=== PATIENT | male | born 1980 | race Two or more races ===

== ENCOUNTER 2016-11-28 17:24 | Emergency (ER) | payer SELFPAY ==
[2016-11-28 18:11] LABS: BASO # 0.1 x10^3/uL (0.0-0.2); BASO % 1 % (0-3); EOS % 4 % (0-3); HEMATOCRIT 46.6 % (39.0-53.0); HEMOGLOBIN 16.2 g/dL (13.0-17.5); LYMPH # 2.5 x10^3/uL (1.0-4.8); LYMPH % 21 % (24-48); MEAN CORPUSCULAR HEMOGLOBIN 30 pg (25-35); MEAN CORPUSCULAR HGB CONC 35 g/dL (31-37); MEAN CORPUSCULAR VOLUME 86 fL (79-100); MONO % 7 % (0-9); NEUT % 67 % (31-73); PLATELET COUNT 274 x10^3/uL (140-400); RED CELL DISTRIBUTION WIDTH 13.6 % (11.5-14.5); WHITE BLOOD COUNT 12.1 x10^3/uL (4.0-11.0)
[2016-11-28 18:24] LABS: CALCIUM 9.8 mg/dL (8.5-10.1); CREATININE 1.1 mg/dL (0.7-1.3); GFR 75.7
[2016-11-28 18:29] LABS: ALBUMIN 4.4 g/dL (3.4-5.0); TOTAL BILIRUBIN 0.4 mg/dL (0.2-1.0); TOTAL PROTEIN 8.6 g/dL (6.4-8.2)
--- NOTE | 2016-11-28 18:29 | EKG ---
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
[2016-11-28] MEDS ORDERED: IV NORMAL SALINE 1000ML BAG 1,000 ML IV ONE ×2 (18:30→19:45)
[2016-11-28] MEDS ORDERED: KETOROLAC 15 MG/ML VIAL. IV ONE (18:30)
[2016-11-28] MEDS ORDERED: POTASSIUM CHLORIDE 20 MEQ TABLET.ER. PO ONE (19:15)
[2016-11-28 19:20] LABS: BILIRUBIN,URINE NEGATIVE (NEG); GLUCOSE,URINE NEGATIVE (NEG); NITRITE,URINE NEGATIVE (NEG); PH,URINE 7.5; PROTEIN,URINE NEGATIVE (NEG-TRACE); UROBILINOGEN,URINE 0.2 mg/dL (0.2 mg/dL)
[2016-11-28 19:30] LABS: BACTERIA,URINE 0 /HPF (0-FEW); RBC,URINE OCC /HPF (0-2); WBC,URINE 0 /HPF (0-4)
[2016-11-28 19:31] LABS: BARBITURATES NEG (NEG); BENZODIAZEPINES NEG (NEG); CANNABINOIDS NEG (NEG); COCAINE NEG (NEG); METHADONE NEG (NEG); OPIATES NEG (NEG); PHENCYCLIDINE NEG (NEG)
[2016-11-28 20:20] VITALS: BP 124/74
--- NOTE | 2016-11-28 20:34 | PHYS DOC ---
Past Medical History Past Medical History: Asthma Past Surgical History: No Surgical History Alcohol Use: Rarely Drug Use: None Adult General Chief Complaint Chief Complaint: RAPID HEART RATE HPI HPI Patient is a 35 year old gentleman who presents ER today secondary to a rapid heart rate with increased respiratory rate that started earlier today. Patient denies any fevers shakes chills nausea vomiting diarrhea. Patient has any chest pain or shortness of breath. Patient reports his symptoms started approximately noon time. Patient reports that he drank 2 large cups of coffee today at around 10:00 prior to the symptoms occurring. Patient reports his last by mouth intake today was around 11 AM. Patient reports he also drank a couple caffeinated sodas as well. Patient denies any history of hypertension diabetes long liver or kidney problems. Patient reports she does have a history of asthma. Patient denies any coronary disease. Patient denies any allergies. Patient does not smoke drink or do any drugs. Patient has no prior DVT or PE. Patient denies any family history of DVT or PE. Review of systems: Constitutional: Denies fever or chills Eyes: Denies change in visual acuity, redness, or eye pain HENT: Denies nasal congestion or sore throat All the other review systems are negative except as documented in the history of present illness portion. Physical exam: Constitutional: Well developed, well nourished, no acute distress, non-toxic appearance. HENT: Normocephalic, atraumatic, bilateral external ears normal, nose normal. Eyes:EOMI, conjunctiva normal, no discharge. Neck: Normal range of motion, no tenderness, supple, no stridor. Cardiovascular:Heart rate regular rhythm, Lungs & Thorax: Bilateral breath sounds clear to auscultation Abdomen: Bowel sounds normal, soft, no tenderness, no masses, no pulsatile masses. Skin: Warm, dry, no erythema, no rash. Back: No tenderness, no CVA tenderness. Extremities: No tenderness, no cyanosis, no clubbing, ROM intact, no edema. Neurologic: Alert and oriented X 3, normal motor function, normal sensory function, no focal deficits noted. Psychologic: Affect normal, judgement normal, mood normal. Patient's physical examination ER significant for a resting tachycardia. Patient 's heart rate between 105-110. Patient's ER workup is significant for normal labs. Patient had normal CBC, CMP , TSH, d-dimer, troponin, BNP. Patient received 2 L of normal saline and 1 mg of IV Ativan to reassess his heart rate. Patient's heart rate currently is running between 100 and 110.\ Assessment and plan Palpitations/tachycardia most likely secondary to increased use of caffeine. Patient's clinically hemodynamically stable and appears very comfortable. I discussed with the patient that he will need to follow-up with primary care physician for further evaluation of his tachycardia but until then I have recommended that he abstain from any caffeinated beverages to see if that might help since it his symptoms. Currently there is no signs or symptoms that'll be concerning for PE, DVT, MO, SVT. Patient is stable for discharged home. Current Medications Current Medications Current Medications Medications (Trade) Dose Ordered Sig/Monserrat Start Time Stop Time Status Last Admin Dose Admin Ketorolac Tromethamine (Toradol) 15 mg 1X ONCE 11/28/16 18:30 11/28/16 18:31 DC 11/28/16 18:27 15 MG Lorazepam (Ativan) 1 mg 1X ONCE 11/28/16 19:45 11/28/16 19:46 DC 11/28/16 19:37 1 MG Potassium Chloride (Klor-Con) 40 meq 1X ONCE 11/28/16 19:15 11/28/16 19:16 DC 11/28/16 19:09 40 MEQ Sodium Chloride 1,000 ml @ 1,000 mls/hr 1X ONCE 11/28/16 19:45 11/28/16 20:44 11/28/16 19:19 1,000 MLS/HR Allergies Allergies Allergies Coded Allergies Type Severity Reaction Last Updated Verified No Known Drug Allergies 11/28/16 No Current Patient Data Vital Signs Vital Signs Date Time Temp Pulse Resp B/P (MAP) Pulse Ox O2 Delivery O2 Flow Rate FiO2 11/28/16 19:50 104 15 122/76 (91) 98 Room Air 11/28/16 17:28 98.8 98.8 Lab Values Laboratory Tests Test 11/28/16 17:38 11/28/16 19:05 White Blood Count 12.1 x10^3/uL (4.0-11.0) H Red Blood Count 5.40 x10^6/uL (4.30-5.70) Hemoglobin 16.2 g/dL (13.0-17.5) Hematocrit 46.6 % (39.0-53.0) Mean Corpuscular Volume 86 fL (79-100) Mean Corpuscular Hemoglobin 30 pg (25-35) Mean Corpuscular Hemoglobin Concent 35 g/dL (31-37) Red Cell Distribution Width 13.6 % (11.5-14.5) Platelet Count 274 x10^3/uL (140-400) Neutrophils (%) (Auto) 67 % (31-73) Lymphocytes (%) (Auto) 21 % (24-48) L Monocytes (%) (Auto) 7 % (0-9) Eosinophils (%) (Auto) 4 % (0-3) H Basophils (%) (Auto) 1 % (0-3) Neutrophils # (Auto) 8.1 x10^3uL (1.8-7.7) H Lymphocytes # (Auto) 2.5 x10^3/uL (1.0-4.8) Monocytes # (Auto) 0.9 x10^3/uL (0.0-1.1) Eosinophils # (Auto) 0.5 x10^3/uL (0.0-0.7) Basophils # (Auto) 0.1 x10^3/uL (0.0-0.2) D-Dimer (Elizabeth) < 0.27 ug/mlFEU Sodium Level 135 mmol/L (136-145) L Potassium Level 3.0 mmol/L (3.5-5.1) L Chloride Level 100 mmol/L (98-107) Carbon Dioxide Level 21 mmol/L (21-32) Anion Gap 14 (6-14) Blood Urea Nitrogen 10 mg/dL (8-26) Creatinine 1.1 mg/dL (0.7-1.3) Estimated GFR (Cockcroft-Gault) 75.7 BUN/Creatinine Ratio 9 (6-20) Glucose Level 134 mg/dL (70-99) H Calcium Level 9.8 mg/dL (8.5-10.1) Total Bilirubin 0.4 mg/dL (0.2-1.0) Aspartate Amino Transferase (AST) 41 U/L (15-37) H Alanine Aminotransferase (ALT) 110 U/L (16-63) H Alkaline Phosphatase 80 U/L (46-116) Troponin I Quantitative < 0.017 ng/mL (0.000-0.055) [id number]-[id number]-A-Type Natriuretic Peptide 27 pg/mL (0-124) Total Protein 8.6 g/dL (6.4-8.2) H Albumin 4.4 g/dL (3.4-5.0) Albumin/Globulin Ratio 1.0 (1.0-1.7) Thyroid Stimulating Hormone (TSH) 1.602 uIU/mL (0.358-3.74) Urine Collection Type Unknown Urine Color Yellow Urine Clarity Clear Urine pH 7.5 Urine Specific [place] <=1.005 Urine Protein Negative mg/dL (NEG-TRACE) Urine Glucose (UA) Negative mg/dL (NEG) Urine Ketones (Stick) Negative mg/dL (NEG) Urine Blood Negative (NEG) Urine Nitrite Negative (NEG) Urine Bilirubin Negative (NEG) Urine Urobilinogen Dipstick 0.2 mg/dL (0.2 mg/dL) Urine Leukocyte Esterase Negative (NEG) Urine RBC Occ /HPF (0-2) Urine WBC 0 /HPF (0-4) Urine Bacteria 0 /HPF (0-FEW) Urine Opiates Screen Neg (NEG) Urine Methadone Screen Neg (NEG) Urine Barbiturates Neg (NEG) Urine Phencyclidine Screen Neg (NEG) Urine Amphetamine/Methamphetamine Neg (NEG) Urine Benzodiazepines Screen Neg (NEG) Urine Cocaine Screen Neg (NEG) Urine Cannabinoids Screen Neg (NEG) Urine Ethyl Alcohol Neg (NEG) Laboratory Tests 11/28/16 17:38 Laboratory Tests 11/28/16 17:38 EKG EKG [] Radiology/Procedures Radiology/Procedures [] Course & Med Decision Making Course & Med Decision Making Pertinent Labs and Imaging studies reviewed. (See chart for details) [] Dragon Disclaimer Dragon Disclaimer This electronic medical record was generated, in whole or in part, using a voice recognition dictation system. Departure Departure Impression: Primary Impression: Tachycardia Disposition: 01 HOME, SELF-CARE Condition: IMPROVED Referrals: NO PCP (PCP) Patient Instructions: Nonspecific Tachycardia MYRTLE LEONARD MD Nov 28, 2016 20:34
--- NOTE | 2016-11-29 07:51 | RAD ---
Indication: Palpitations and tachycardia. Technique: Two-view chest radiograph was obtained. No comparison is available. Findings: The lungs are clear. The cardiopulmonary silhouette is within normal limits. There is no pleural effusion. The bony structures are intact. Impression: No acute thoracic findings.
== END 2016-11-28 20:45 | disposition home or self-care (01) ==
LOC: ER 17:24
DX: R00.0 Tachycardia, unspecified (principal); R00.2 Palpitations; J45.909 Unspecified asthma, uncomplicated
CPT/HCPCS: 36415; 71020; 80053; 80307; 81001; 83880; 84443; 84484; 85025; 85379; 93005; 96361; 96374; 96375; 99285; J1885; J2060; J7030; G0479